=== PATIENT | female | born 1935 | race Caucasian/White ===

== ENCOUNTER 2020-05-10 17:22 | Inpatient (IN) ==
[2020-05-11] MEDS ORDERED: polyethylene glycoL 3350 17 GM POWD.PACK PO PRN (12:44)
[2020-05-11] MEDS: ALPRAZolam 0.25 MG TABLET PO SCH ×2 (15:38→20:04)
[2020-05-11] MEDS: Acetaminophen 325 MG TABLET PO PRN ×2 (15:38→20:54)
[2020-05-11] MEDS ORDERED: Dextrose Gel 15 GM/37.5 ML TUBE PO PRN ×2 (15:44)
[2020-05-11] MEDS ORDERED: D5% in Water 1,000 ML IVC PRN (15:44)
[2020-05-11] MEDS ORDERED: *HR* Dextrose 50 % in Water (Vial) 50 ML VIAL IVP PRN (15:44)
[2020-05-11] MEDS: Insulin LISPRO 300 UNITS/3 ML VIAL SQ SCH ×2 (16:59→20:07)
[2020-05-11] MEDS: Apixaban 5 MG TABLET PO SCH (20:04)
[2020-05-11] MEDS ORDERED: Famotidine 20 MG TABLET PO SCH (21:00)
[2020-05-12] MEDS: Acetaminophen 325 MG TABLET PO PRN ×3 (02:55→18:21)
[2020-05-12] MEDS ORDERED: ALPRAZolam 0.25 MG TABLET PO ONE (04:33)
[2020-05-12 06:59] LABS: Basophils # 0.1 K/mcL (0.0-0.2); Basophils % 0.7 %; Eosinophils # 0.3 K/mcL (0.0-0.6); Eosinophils % 3.4 %; Hematocrit 29.3 % (35.3-44.9); Hemoglobin 9.2 g/dL (11.5-15.4); Immature Granulocytes % 0.7 % (0-4); Lymphocytes # 1.1 K/mcL (0.6-4.6); Lymphocytes % 14.8 %; Mean Corpuscular HGB Conc 31.4 g/dL (31.6-35.5); Mean Corpuscular Hemoglobin 26.9 pg (28.0-33.3); Mean Corpuscular Volume 85.7 fL (83.0-100.0); Mean Platelet Volume 8.8 fL (9.4-12.4); Monocytes # 0.5 K/mcL (0.0-1.3); Monocytes % 7.2 %; Neutrophils # 5.4 K/mcL (1.6-8.9); Platelet Count 809 K/mcL (140-400); Red Blood Count 3.42 M/mcL (3.82-4.97); Red Cell Distribution Width 14.7 % (11.5-14.5); Segmented Neutrophils % 73.2 %; White Blood Count 7.4 K/mcL (4.3-11.1)
[2020-05-12 07:28] LABS: BUN/Creatinine Ratio 20 (6-26); Blood Urea Nitrogen 10 mg/dL (8-23); Calcium 8.5 mg/dL (8.6-10.3); Carbon Dioxide 26 mEq/L (23-29); Chloride 101 mEq/L (98-107); Glucose 141 mg/dL (70-105); Osmolality,Calculated 281 (280-300); Potassium 4.3 mEq/L (3.5-5.1); Sodium 135 mEq/L (136-145); eGFR For African Americans > 60 (> 60); eGFR For Non-African Americans > 60 (> 60)
[2020-05-12] MEDS ORDERED: Famotidine 20 MG TABLET PO SCH (08:00)
[2020-05-12] MEDS: Cholecalciferol (D-3) 1,000 UNIT (25MCG) TABLET PO SCH (08:10)
[2020-05-12] MEDS: Insulin LISPRO 300 UNITS/3 ML VIAL SQ SCH ×4 (08:10→20:17)
[2020-05-12] MEDS: ALPRAZolam 0.25 MG TABLET PO SCH ×3 (08:11→19:53)
[2020-05-12] MEDS: amLODIPine 5 MG TABLET PO SCH (08:11)
[2020-05-12] MEDS: *HR* GlipiZIDE XL (24 HR) 2.5 MG TABLET PO SCH (08:11)
[2020-05-12] MEDS: Multivit/Ca/Min/Fe/FA 1 TAB TABLET PO SCH (08:11)
[2020-05-12] MEDS: Apixaban 5 MG TABLET PO SCH ×2 (08:11→19:53)
[2020-05-12] MEDS: Fluticasone Propionate Nasal 50 MCG/SPRAY BOTTLE NS SCH (08:12)
[2020-05-12] MEDS: Magnesium Oxide 400 MG TABLET PO SCH (08:12)
[2020-05-12] MEDS: ESOMEPRAZOLE 40 MG PO SCH (16:07)
[2020-05-13] MEDS: Acetaminophen 325 MG TABLET PO PRN ×4 (01:59→20:09)
[2020-05-13] MEDS: ALPRAZolam 0.25 MG TABLET PO SCH ×3 (08:02→20:09)
[2020-05-13] MEDS: amLODIPine 5 MG TABLET PO SCH (08:03)
[2020-05-13] MEDS: Cholecalciferol (D-3) 1,000 UNIT (25MCG) TABLET PO SCH (08:03)
[2020-05-13] MEDS: Magnesium Oxide 400 MG TABLET PO SCH (08:03)
[2020-05-13] MEDS: Multivit/Ca/Min/Fe/FA 1 TAB TABLET PO SCH (08:03)
[2020-05-13] MEDS: *HR* GlipiZIDE XL (24 HR) 2.5 MG TABLET PO SCH (08:03)
[2020-05-13] MEDS: Apixaban 5 MG TABLET PO SCH ×2 (08:03→20:09)
[2020-05-13] MEDS: Fluticasone Propionate Nasal 50 MCG/SPRAY BOTTLE NS SCH (08:04)
[2020-05-13] MEDS: Insulin LISPRO 300 UNITS/3 ML VIAL SQ SCH ×4 (08:04→20:09)
[2020-05-13] MEDS: ESOMEPRAZOLE 40 MG PO SCH (16:38)
[2020-05-14] MEDS: Acetaminophen 325 MG TABLET PO PRN ×3 (03:57→17:01)
[2020-05-14] MEDS: Insulin LISPRO 300 UNITS/3 ML VIAL SQ SCH ×4 (07:37→20:08)
[2020-05-14] MEDS: Cholecalciferol (D-3) 1,000 UNIT (25MCG) TABLET PO SCH (08:22)
[2020-05-14] MEDS: ALPRAZolam 0.25 MG TABLET PO SCH ×3 (08:22→20:08)
[2020-05-14] MEDS: *HR* GlipiZIDE XL (24 HR) 2.5 MG TABLET PO SCH (08:22)
[2020-05-14] MEDS: Apixaban 5 MG TABLET PO SCH ×2 (08:22→20:08)
[2020-05-14] MEDS: Multivit/Ca/Min/Fe/FA 1 TAB TABLET PO SCH (08:22)
[2020-05-14] MEDS: Magnesium Oxide 400 MG TABLET PO SCH (08:23)
[2020-05-14] MEDS: Fluticasone Propionate Nasal 50 MCG/SPRAY BOTTLE NS SCH (08:23)
[2020-05-14] MEDS: amLODIPine 5 MG TABLET PO SCH (08:23)
[2020-05-14] MEDS: ESOMEPRAZOLE 40 MG PO SCH (16:55)
[2020-05-15] MEDS: Acetaminophen 325 MG TABLET PO PRN ×4 (00:12→20:05)
[2020-05-15] MEDS: amLODIPine 5 MG TABLET PO SCH (08:15)
[2020-05-15] MEDS: Apixaban 5 MG TABLET PO SCH ×2 (08:16→20:05)
[2020-05-15] MEDS: ALPRAZolam 0.25 MG TABLET PO SCH ×3 (08:16→20:05)
[2020-05-15] MEDS: Cholecalciferol (D-3) 1,000 UNIT (25MCG) TABLET PO SCH (08:16)
[2020-05-15] MEDS: *HR* GlipiZIDE XL (24 HR) 2.5 MG TABLET PO SCH (08:16)
[2020-05-15] MEDS: Magnesium Oxide 400 MG TABLET PO SCH (08:16)
[2020-05-15] MEDS: Multivit/Ca/Min/Fe/FA 1 TAB TABLET PO SCH (08:16)
[2020-05-15] MEDS: Insulin LISPRO 300 UNITS/3 ML VIAL SQ SCH ×4 (08:17→20:15)
[2020-05-15] MEDS: Fluticasone Propionate Nasal 50 MCG/SPRAY BOTTLE NS SCH (08:17)
[2020-05-15] MEDS: ESOMEPRAZOLE 40 MG PO SCH (16:37)
[2020-05-16] MEDS: Insulin LISPRO 300 UNITS/3 ML VIAL SQ SCH ×4 (07:32→20:46)
[2020-05-16] MEDS: Cholecalciferol (D-3) 1,000 UNIT (25MCG) TABLET PO SCH (07:33)
[2020-05-16] MEDS: Acetaminophen 325 MG TABLET PO PRN ×3 (07:33→20:44)
[2020-05-16] MEDS: amLODIPine 5 MG TABLET PO SCH (07:34)
[2020-05-16] MEDS: Apixaban 5 MG TABLET PO SCH ×2 (07:34→20:45)
[2020-05-16] MEDS: Multivit/Ca/Min/Fe/FA 1 TAB TABLET PO SCH (07:34)
[2020-05-16] MEDS: *HR* GlipiZIDE XL (24 HR) 2.5 MG TABLET PO SCH (07:34)
[2020-05-16] MEDS: Magnesium Oxide 400 MG TABLET PO SCH (07:34)
[2020-05-16] MEDS: Fluticasone Propionate Nasal 50 MCG/SPRAY BOTTLE NS SCH (07:34)
[2020-05-16] MEDS: ALPRAZolam 0.25 MG TABLET PO SCH ×3 (07:34→20:45)
[2020-05-16] MEDS: ESOMEPRAZOLE 40 MG PO SCH ×2 (16:28→16:33)
[2020-05-17] MEDS: Acetaminophen 325 MG TABLET PO PRN ×4 (02:44→21:06)
[2020-05-17] MEDS: Cholecalciferol (D-3) 1,000 UNIT (25MCG) TABLET PO SCH (08:46)
[2020-05-17] MEDS: Magnesium Oxide 400 MG TABLET PO SCH (08:47)
[2020-05-17] MEDS: Multivit/Ca/Min/Fe/FA 1 TAB TABLET PO SCH (08:47)
[2020-05-17] MEDS: amLODIPine 5 MG TABLET PO SCH (08:47)
[2020-05-17] MEDS: Apixaban 5 MG TABLET PO SCH ×2 (08:47→21:06)
[2020-05-17] MEDS: ALPRAZolam 0.25 MG TABLET PO SCH ×3 (08:47→21:06)
[2020-05-17] MEDS: *HR* GlipiZIDE XL (24 HR) 2.5 MG TABLET PO SCH (08:47)
[2020-05-17] MEDS: Fluticasone Propionate Nasal 50 MCG/SPRAY BOTTLE NS SCH (08:47)
[2020-05-17] MEDS: Insulin LISPRO 300 UNITS/3 ML VIAL SQ SCH ×4 (08:47→21:08)
[2020-05-17] MEDS: ESOMEPRAZOLE 40 MG PO SCH (17:52)
[2020-05-18] MEDS: Acetaminophen 325 MG TABLET PO PRN ×3 (03:53→18:20)
[2020-05-18] MEDS: Insulin LISPRO 300 UNITS/3 ML VIAL SQ SCH ×4 (08:16→20:21)
[2020-05-18] MEDS: Fluticasone Propionate Nasal 50 MCG/SPRAY BOTTLE NS SCH (08:16)
[2020-05-18] MEDS: ALPRAZolam 0.25 MG TABLET PO SCH ×3 (08:23→20:20)
[2020-05-18] MEDS: *HR* GlipiZIDE XL (24 HR) 2.5 MG TABLET PO SCH (08:23)
[2020-05-18] MEDS: amLODIPine 5 MG TABLET PO SCH (08:23)
[2020-05-18] MEDS: Cholecalciferol (D-3) 1,000 UNIT (25MCG) TABLET PO SCH (08:23)
[2020-05-18] MEDS: Magnesium Oxide 400 MG TABLET PO SCH (08:23)
[2020-05-18] MEDS: Apixaban 5 MG TABLET PO SCH ×2 (08:23→20:21)
[2020-05-18] MEDS: Multivit/Ca/Min/Fe/FA 1 TAB TABLET PO SCH (08:24)
[2020-05-18] MEDS: Ergocalciferol (VIT D2) 50,000 UNIT (1.25MG) CAP PO SCH ×2 (08:25→09:23)
[2020-05-18] MEDS: ESOMEPRAZOLE 40 MG PO SCH (15:41)
[2020-05-19] MEDS: Acetaminophen 325 MG TABLET PO PRN ×4 (01:03→20:24)
[2020-05-19 07:58] LABS: Hemoglobin 9.8 g/dL (11.5-15.4); Mean Corpuscular HGB Conc 31.6 g/dL (31.6-35.5); Mean Corpuscular Hemoglobin 27.6 pg (28.0-33.3); Mean Corpuscular Volume 87.3 fL (83.0-100.0); Mean Platelet Volume 9.1 fL (9.4-12.4); Platelet Count 536 K/mcL (140-400); Red Blood Count 3.55 M/mcL (3.82-4.97); Red Cell Distribution Width 15.7 % (11.5-14.5); White Blood Count 6.1 K/mcL (4.3-11.1)
[2020-05-19] MEDS: Insulin LISPRO 300 UNITS/3 ML VIAL SQ SCH ×4 (08:01→21:25)
[2020-05-19] MEDS: Fluticasone Propionate Nasal 50 MCG/SPRAY BOTTLE NS SCH (08:06)
[2020-05-19 08:11] LABS: BUN/Creatinine Ratio 38 (6-26); Blood Urea Nitrogen 20 mg/dL (8-23); Calcium 8.8 mg/dL (8.6-10.3); Carbon Dioxide 24 mEq/L (23-29); Chloride 104 mEq/L (98-107); Glucose 122 mg/dL (70-105); Osmolality,Calculated 286 (280-300); Potassium 4.3 mEq/L (3.5-5.1); Sodium 136 mEq/L (136-145); eGFR For African Americans > 60 (> 60); eGFR For Non-African Americans > 60 (> 60)
[2020-05-19] MEDS: ALPRAZolam 0.25 MG TABLET PO SCH ×3 (08:38→20:24)
[2020-05-19] MEDS: Magnesium Oxide 400 MG TABLET PO SCH (08:39)
[2020-05-19] MEDS: Cholecalciferol (D-3) 1,000 UNIT (25MCG) TABLET PO SCH (08:39)
[2020-05-19] MEDS: *HR* GlipiZIDE XL (24 HR) 2.5 MG TABLET PO SCH (08:39)
[2020-05-19] MEDS: amLODIPine 5 MG TABLET PO SCH (08:40)
[2020-05-19] MEDS: Apixaban 5 MG TABLET PO SCH ×2 (08:40→20:25)
[2020-05-19] MEDS: Multivit/Ca/Min/Fe/FA 1 TAB TABLET PO SCH (08:41)
[2020-05-19] MEDS: ESOMEPRAZOLE 40 MG PO SCH (17:03)
[2020-05-20] MEDS: Acetaminophen 325 MG TABLET PO PRN ×3 (02:42→18:35)
[2020-05-20] MEDS: Multivit/Ca/Min/Fe/FA 1 TAB TABLET PO SCH (07:46)
[2020-05-20] MEDS: *HR* GlipiZIDE XL (24 HR) 2.5 MG TABLET PO SCH (07:46)
[2020-05-20] MEDS: Apixaban 5 MG TABLET PO SCH ×2 (07:46→20:02)
[2020-05-20] MEDS: ALPRAZolam 0.25 MG TABLET PO SCH ×3 (07:46→20:02)
[2020-05-20] MEDS: amLODIPine 5 MG TABLET PO SCH (07:46)
[2020-05-20] MEDS: Cholecalciferol (D-3) 1,000 UNIT (25MCG) TABLET PO SCH (07:46)
[2020-05-20] MEDS: Magnesium Oxide 400 MG TABLET PO SCH (07:46)
[2020-05-20] MEDS: Insulin LISPRO 300 UNITS/3 ML VIAL SQ SCH ×3 (07:46→16:48)
[2020-05-20] MEDS: Fluticasone Propionate Nasal 50 MCG/SPRAY BOTTLE NS SCH (11:10)
[2020-05-20] MEDS: ESOMEPRAZOLE 40 MG PO SCH (16:52)
[2020-05-21] MEDS: Insulin LISPRO 300 UNITS/3 ML VIAL SQ SCH ×5 (01:12→19:39)
[2020-05-21] MEDS: Acetaminophen 325 MG TABLET PO PRN ×4 (01:12→20:37)
[2020-05-21] MEDS: *HR* GlipiZIDE XL (24 HR) 2.5 MG TABLET PO SCH (08:24)
[2020-05-21] MEDS: Cholecalciferol (D-3) 1,000 UNIT (25MCG) TABLET PO SCH (08:24)
[2020-05-21] MEDS: Multivit/Ca/Min/Fe/FA 1 TAB TABLET PO SCH (08:24)
[2020-05-21] MEDS: ALPRAZolam 0.25 MG TABLET PO SCH ×3 (08:24→19:59)
[2020-05-21] MEDS: Magnesium Oxide 400 MG TABLET PO SCH (08:24)
[2020-05-21] MEDS: Apixaban 5 MG TABLET PO SCH ×2 (08:24→19:59)
[2020-05-21] MEDS: amLODIPine 5 MG TABLET PO SCH (08:24)
[2020-05-21] MEDS: Fluticasone Propionate Nasal 50 MCG/SPRAY BOTTLE NS SCH (08:25)
[2020-05-21] MEDS: ESOMEPRAZOLE 40 MG PO SCH (18:04)
[2020-05-22 07:11] VITALS: BP 148/80
[2020-05-22] MEDS: Multivit/Ca/Min/Fe/FA 1 TAB TABLET PO SCH (09:22)
[2020-05-22] MEDS: Apixaban 5 MG TABLET PO SCH ×2 (09:22→18:33)
[2020-05-22] MEDS: Acetaminophen 325 MG TABLET PO PRN (09:22)
[2020-05-22] MEDS: *HR* GlipiZIDE XL (24 HR) 2.5 MG TABLET PO SCH (09:22)
[2020-05-22] MEDS: Magnesium Oxide 400 MG TABLET PO SCH (09:22)
[2020-05-22] MEDS: amLODIPine 5 MG TABLET PO SCH (09:22)
[2020-05-22] MEDS: Cholecalciferol (D-3) 1,000 UNIT (25MCG) TABLET PO SCH (09:22)
[2020-05-22] MEDS: ALPRAZolam 0.25 MG TABLET PO SCH ×2 (09:23→14:24)
[2020-05-22] MEDS: Insulin LISPRO 300 UNITS/3 ML VIAL SQ SCH ×2 (09:24→12:54)
[2020-05-22] MEDS: Fluticasone Propionate Nasal 50 MCG/SPRAY BOTTLE NS SCH (09:24)
== END 2020-05-22 19:25 | disposition home health service (06) | DRG 559 ==
LOC: INPPIK 05-11 12:59
PROVIDERS: ADMIT Family Medicine; ATTEND Family Medicine